=== PATIENT | male | born 2000 | race Hispanic/Latino ===

== ENCOUNTER 2021-01-14 11:56 | Emergency (ER) | payer SELFPAY ==
[2021-01-14] MEDS ORDERED: Metoclopramide HCl 10 MG TAB ONE (14:52)
[2021-01-14] MEDS ORDERED: diphenhydrAMINE 25 MG CAP ONE (14:52)
[2021-01-14] MEDS ORDERED: Ketorolac Tromethamine 30 MG/ML VIAL ONE ×2 (14:52→14:56)
== END 2021-01-14 16:18 | disposition home or self-care (01) ==
LOC: ERS 11:56
DX: R51.9 Headache, unspecified (principal)
CPT/HCPCS: 96372; 99283; J1885; Q0163